=== PATIENT | female | born 1935 | race Caucasian/White ===

== ENCOUNTER → 2016-11-10 | Outpatient (CLI) | payer MEDICARE, BC ==
--- NOTE | 2016-11-10 14:14 | RADRPT ---
PROCEDURE: Left knee radiographs. CLINICAL INDICATION: Left knee pain. TECHNIQUE: Four views. Weight bearing. Frontal, lateral, oblique, and patellar view. COMPARISON: No prior studies are available for comparison. FINDINGS: There has been prior surgery with a wallace in the shaft of the femur and 3 locking screws distally. Th ere is a healed fracture of the distal shaft of the femur. There is no acute fracture or dislocatio n. There is diffuse osteopenia. Vascular calcifications are present consistent with atherosclerosis. There is no joint effusion. There are severe degenerative changes of the left knee with joint space narrowing, osteophytes, suba rticular sclerosis. There is medial and lateral joint compartment narrowing with deformity of the l ateral joint compartment. There is no lytic or blastic lesion. IMPRESSION: 1. Satisfactory postoperative appearance of the femur. 2. Atherosclerosis. 3. Severe degenerative changes of the left knee. RPTAT: QQ .Horacio Potter MD, MD Date Time Electronically viewed and signed by .Horacio Potter MD, on 11/10/2016 14:14 .R/
--- NOTE | 2016-11-10 14:17 | RADRPT ---
PROCEDURE: XR Left hip and pelvis. CLINICAL INDICATION: Left hip pain and pelvic pain. TECHNIQUE: 3 views. Frontal pelvis. Frontal and lateral left hip. COMPARISON: 04/18/2015. FINDINGS: There is no acute fracture. There is no dislocation. There is a wallace in the shaft of the femur with a locking screw proximally. Surgical clips are present in the lower abdomen. Vascular calcifications are present consistent wit h atherosclerosis. The right hip is normal. There are degenerative changes of the left hip with joint space narrowing, osteophytes, and deformity. There is no lytic or blastic lesion. IMPRESSION: 1. Prior left femur surgery. 2. Prior lower abdomen surgery. 3. Atherosclerosis. 4. Severe degenerative changes of the left hip, similar to 04/18/2015. RPTAT: QQ .Horacio Potter MD, MD Date Time Electronically viewed and signed by .Horacio Potter MD, MD on 11/10/2016 14:17 .R/
== END | disposition home or self-care (01) ==
LOC: HKI 13:25
PROVIDERS: ATTEND Orthopaedic Surgery
DX: M16.12 Unilateral primary osteoarthritis, left hip (principal); M17.12 Unilateral primary osteoarthritis, left knee; E78.00 Pure hypercholesterolemia, unspecified; I10 Essential (primary) hypertension; I48.91 Unspecified atrial fibrillation; E11.9 Type 2 diabetes mellitus without complications; C85.90 Non-Hodgkin lymphoma, unspecified, unspecified site; C44.319 Basal cell carcinoma of skin of other parts of face; I87.2 Venous insufficiency (chronic) (peripheral); Z95.5 Presence of coronary angioplasty implant and graft; H40.9 Unspecified glaucoma
CPT/HCPCS: 20610; 73502; G0463; J1030

== ENCOUNTER → 2017-07-13 | Outpatient (CLI) | END | disposition home or self-care (01) ==